=== PATIENT | female | born 1940 ===

== ENCOUNTER 2021-11-19 07:50 | Outpatient (CLI) | payer OTHER | END 2021-11-19 23:59 | disposition home or self-care (01) | LOC: LAB 07:50 | PROVIDERS: ATTEND Ophthalmology | DX: Z01.812 Encounter for preprocedural laboratory examination (principal); Z20.822 Contact with and (suspected) exposure to COVID-19; H11.003 Unspecified pterygium of eye, bilateral ==

== ENCOUNTER 2021-11-21 06:24 | Day surgery (SDC) | payer OTHER ==
[2021-11-21] MEDS ORDERED: NEO/POLYMYX B/DEXAME OPHT OINT 3.5 GM TUBE ONE (06:44)
[2021-11-21] MEDS ORDERED: BALANCED SALT IRRIG SOLN COMB2 15 ML IRRIG.SOLN ONE (06:45)
[2021-11-21] MEDS ORDERED: MITOMYCIN 5 MG, WATER FOR INJECTION,STERILE 10 ML XX ONE ×2 (07:00)
[2021-11-21] MEDS ORDERED: MIDAZOLAM HCL 2 MG/2 ML VIAL ONE (07:53)
[2021-11-21] MEDS ORDERED: TETRACAINE HCL 0.5% OPHT DROP 2 ML BOTTLE ONE (07:56)
[2021-11-21] MEDS ORDERED: LIDOCAINE 2%-EPI 1:100,000 20 ML VIAL ONE (07:56)
== END 2021-11-21 10:05 | disposition home or self-care (01) ==
LOC: DS 06:24
PROVIDERS: ATTEND Ophthalmology
DX: H11.002 Unspecified pterygium of left eye (principal); I10 Essential (primary) hypertension; E11.9 Type 2 diabetes mellitus without complications; M81.0 Age-related osteoporosis without current pathological fracture; Z79.84 Long term (current) use of oral hypoglycemic drugs; Z79.899 Other long term (current) drug therapy; Z98.890 Other specified postprocedural states
CPT/HCPCS: 65420; J2250; J9280; J7040; A4663